=== PATIENT | female | born 1945 | race Caucasian/White ===

== ENCOUNTER → 2018-04-08 | Outpatient (REF) | payer MEDICARE, BC ==
[~2018-04-08] MED LIST: IBUPROFEN800 MG PO; MOTRIN800 MG/TAB PO; ULTRAM50 MG PO; XANAX0.25 MG PO; ZPAK PO
[2018-04-08 10:08] LABS: ALBUMIN 4.2 g/dL (3.2-5.0); ALKALINE PHOSPHATASE 63 u/l (38-126); ANION GAP 14 (6-22 (CALC)); BILIRUBIN, TOTAL 0.6 mg/dL (0.0-1.4); BUN 14 mg/dL (8-23); BUN/CREATININE RATIO 17 (12-20 (CALC)); CALCULATED LDLCHOLESTEROL 129 mg/dL (62-129 (CALC)); CARBON DIOXIDE 28 mmol/l (22-30); CHLORIDE 104 mmol/l (95-108); CHOLESTEROL HDL RATIO 2.6 (<4.4 (CALC)); CREATININE 0.8 mg/dL (0.5-1.0); GFR > 60 ML/MIN (>=60 (CALC)); GFR FOR AFR.AMER. > 60 ML/MIN (>=60 (CALC)); HDL CHOLESTEROL 87 mg/dL (>=40); SGOT/AST 25 u/l (9-36); SODIUM 141 mmol/l (137-146); TOTAL CHOLESTEROL 226 mg/dl (0-199); TOTAL PROTEIN 6.7 g/dL (6.3-8.2); TRIGLYCERIDES REFLEX TO dLDL 50 mg/dl (30-149); VLDL CHOLESTROL 10 mg/dl (0-48 (CALC))
== END | disposition home or self-care (01) ==
LOC: LAB 09:13
PROVIDERS: ATTEND Internal Medicine Geriatric Medicine
DX: E78.5 Hyperlipidemia, unspecified (principal)